=== PATIENT | male | born 1975 | race Caucasian/White ===

== ENCOUNTER 2018-08-11 00:24 | Outpatient (CLI) | payer BC, SELFPAY ==
--- NOTE | 2018-08-11 07:42 | DI.US_ITS ---
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 MASS CAUSING VARICOCELE RENAL ULTRASOUND: There are no prior comparison exams. The kidneys are normal in size and show normal parenchymal thickness and echogenicity. The right kidney measures 10.5 cm in length. The left kidney measures 11.8 cm in length. No hydronephrosis or calcifications are seen. The prevoid bladder volume measured 466 cc's. There is a 30 cc postvoid residual. No bladder mass or wall thickening is seen. Both ureteral jets were visualized. The prostate has a normal of 29 cc's. IMPRESSION: Negative renal ultrasound. SCROTAL ULTRASOUND: The testicles are normal in size and show normal blood flow and echogenicity. No masses are seen. There is no evidence of torsion. An 8 x 7 x 9 mm cyst is seen in the head of the right epididymis. A 6 mm cyst is seen in the head of the left epididymis. There are mild bilateral varicoceles, right greater than left. There is no evidence of hydrocele. IMPRESSION: Small bilateral varicoceles and small bilateral epididymal head cysts.
== END 2018-08-11 00:44 ==
PROVIDERS: PCP Nurse Practitioner Family; Visit Provider Urology
DX: N46.01 Organic azoospermia (principal); I86.1 Scrotal varices; N50.3 Cyst of epididymis
CPT/HCPCS: 76770; 76870

== ENCOUNTER 2018-10-24 16:46 | Outpatient (CLI) | payer BC, SELFPAY | END 2018-10-24 17:06 | PROVIDERS: PCP Nurse Practitioner Family; Visit Provider Urology | DX: N46.01 Organic azoospermia (principal) | CPT/HCPCS: 36415; 81403; 88230; 88262 ==

== ENCOUNTER 2018-10-30 09:10 | Emergency (ER) | payer OTHER, BC, SELFPAY ==
[2018-10-30 09:14] VITALS: BP 165/113; PULSE 88; RESP 16; TEMP 36.2; O2SAT 95
--- NOTE | 2018-10-30 09:41 | W.ED.GENAD ---
Discharge Plan Disposition Patient Disposition: HOME Condition: Stable Discharge Details Chief Complaint: Orthopedic Clinical Impression: Partial Achilles tendon tear, High blood pressure Primary Care Provider: Sally Bellamy ED Provider: Mary Akins Home Meds and New Rx's Prescriptions: No Action hydrocodone-acetaminophen [Dahlen] 5-325 mg Tablet 1 tab PO Q4H RF: 0 Discharge Instructions Instructions: Achilles Tendon Rupture (ED), Hypertension (ED) Additional Instructions: Please return immediately to the emergency department if you develop any new or worsening symptoms or if you become otherwise concerned. It is extremely important that you make an appointment to be seen as soon as possible by an orthopedic surgeon and also by your primary care doctor. Referrals: Jason Day MD [[facility] STAFF PHYSICIAN] - Sally Bellamy [Primary Care Provider] - Discharge Data Discharge Date/Time-TO BE ENTERED AT DEPARTURE: 10/30/18 11:35 Medical Decision Making Shelton Collazo is a 43 y/o man without reported history of medical problems who presented to the emergency department with sudden onset posterior heel/ankle pain that occurred while playing basketball this morning. On exam patient is well and nontoxic appearing. Tenderness and somewhat limited dorsiflexion consistent with Achilles tendon injury. Plan for x-ray for rule out avulsion fracture. X-ray negative. Concern for partial versus complete Achilles tendon rupture, suspect partial given relatively intact dorsiflexion, mild pain with walking. Plan for boot, crutches, outpatient follow-up with orthopedic surgery. Patient placed on Ortho-Est. I had a lengthy discussion with the patient regarding return to emergency department precautions, home care, and importance of outpatient follow-up with Orth O and PCP. Patient verbalized understanding of the plan and was amenable, patient was discharged with clear plan for follow-up. All questions were answered. Medical Records Medical records reviewed: Yes I reviewed the patient's medical records. Imaging Data Radiologic Study: Attestation: I personally reviewed and interpreted this imaging study as follows: Radiologist's impression: 11:06: X-ray per radiology no acute findings HPI General Mode of arrival: ambulatory. Date/Time Provider Initiated Documentation: 10/30/18 09:41. Limitations to Documentation: no limitations. Information obtained by: patient, RN notes reviewed and old records reviewed. HPI Narrative: Shelton Collazo is a 43 y/o man without reported h/o major medical problems presenting to the emergency department with ankle pain. Patient reports that he was playing basketball this morning, when he attempted a sudden acceleration to the side and had sudden sharp pain of the back of his left ankle. Patient reports it felt as if he had been kicked. Being held at night he was unable to continue playing because of pain. Patient reports no other injury. He has mild pain with walking. He was previously in his usual state of health, no recent illness. Patient reports that he has had chronic mild intermittent pain in the posterior left heel over the past 10 years, but no pain similar to what he experienced today. Related Data Home Medications Medication Instructions Recorded Confirmed hydrocodone-acetaminophen [Dahlen] 1 tab PO Q4H 11/01/18 11/01/18 Allergies Allergy/AdvReac Type Severity Reaction Status Date / Time No Known Allergies Allergy Unverified 11/01/18 09:16 General Stated Complaint: Orthopedic SEMAJ: 4 Review of Systems Review of Systems Constitutional: denies fevers Eyes: denies eye pain ENT: denies facial pain, dental pain, sore throat Cardiovascular: denies chest pain Respiratory: denies SOB, cough GI: denies abdominal pain, vomiting, diarrhea : denies flank pain MSK: denies back pain, neck pain, reports posterior left ankle pain as per HPI Skin: denies rash Neuro: denies headaches, numbness, weakness PFSH Medical History [place] teeth removed (Acute) Family History Other Cancer Social History Smoking/Tobacco Use Status: Never Alcohol Intake: current Alcohol Intake frequency: a few times a week Alcohol type: beer Substance use type: does not use Do you feel safe at home: Yes Do you feel safe in your relationship?: Yes Exam Narrative Exam Narrative: Constitutional: well and [id number], pleasant, conversing normally HENT: head atraumatic/normocephalic/normal inspection, mucous membranes moist Eyes: conjunctiva normal, sclera normal, pupils 3mm b/l Neck: no stridor, normal ROM, trachea midline Resp: normal work of breathing, LCTAB Cardio: normal rate, normal rhythm, no murmur appreciated Skin: warm, dry, normal color, no rash Neuro: alert, not altered, grossly non-focal, normal tone Ext: mild tenderness over left achilles, Pt able to dorsiflex with some limitation, negative brown test, ankle o/w nontender to palpation, no posterior calf tenderness, full range of motion knee and toes, DP pulses intact and symmetric, good cap refill Psych: normal mood, normal affect, normal behavior Course Vital Signs Temperature 36.2 C L 10/30/18 09:14 Pulse 88 10/30/18 09:14 Respiratory Rate 16 10/30/18 09:14 Blood Pressure 165/113 H 10/30/18 09:14 Pulse Oximetry 95 10/30/18 09:14 Temperature 36.2 C L 10/30/18 09:14 Pulse 88 10/30/18 09:14 Respiratory Rate 16 10/30/18 09:14 Respiratory Effort Non-Labored 10/30/18 09:17 Blood Pressure 165/113 H 10/30/18 09:14 Pulse Oximetry 95 10/30/18 09:14 Oxygen Delivery Method Room Air 10/30/18 09:14 Oxygen Flow Rate 0 10/30/18 09:14
--- NOTE | 2018-10-30 10:08 | DI.RAD_ITS ---
SYMPTOMS/DIAGNOSIS: TRAUMA, PAIN OVER ACHILLES LEFT ANKLE: Three views were obtained. The ankle mortise appears well maintained. No fracture is seen.
== END 2018-10-30 11:35 | disposition home or self-care (01) ==
PROVIDERS: Emergency Provider Student in an Organized Health Care Education/Training Program; PCP Nurse Practitioner Family
DX: S86.012A Strain of left Achilles tendon, initial encounter (principal); X50.9XXA Other and unspecified overexertion or strenuous movements or postures, initial encounter; I10 Essential (primary) hypertension; Y93.67 Activity, basketball
CPT/HCPCS: 99283; 73610; L4361

== ENCOUNTER 2018-11-01 09:03 | Day surgery (SDC) | payer OTHER, BC, SELFPAY ==
[2018-11-01] VITALS (7 sets, daily range): BP systolic 120–140; BP diastolic 49–87; PULSE 67–84; RESP 14–19; TEMP 36–37.2; O2SAT 92–95
[2018-11-01] MEDS: Lactated Ringers 1,000 ML 80 ML IV (09:39)
[2018-11-01] MEDS: Bupivacaine 0.5% Pres-Free 30 ML VIAL (11:25)
[2018-11-01] MEDS: Bupivacaine LIPOSOME/PF 133 MG/10 ML VIAL IJ (11:25)
[2018-11-01] MEDS: fentaNYL 100 MCG/2 ML VIAL IVP (12:05)
--- NOTE | 2018-11-01 12:07 | PDOC.DSDIS_ITS ---
Discharge Plan Disposition Patient Disposition: HOME Condition: Improving Discharge Details Reason For Visit: (L) ACHILLES TENDON REPAIR Attending Provider: Jonathon Lei Primary Care Provider: Sally Bellamy Home Meds and New Rx's Prescriptions: No Action No Known Home Meds RF: 0 Discharge Instructions Additional Instructions: Keep your left ankle elevated above heart level as much as possible for the next 48 hours. Gently exercise your toes as comfort allows. Your cast has been split, you may loosen the mayo bandage and spread or wedge the cast open if it feels too tight. Use an ice bag over the back of your cast in the achilles tendon region to help with pain and swelling. It may take up to 40 minutes for the cold to be conducted thru the cast padding. You may get up to eat or to go to the bathroom, but for the next 48 hours try to maximize elevation. Always use your crutches to avoid placing any weight upon your cast. However, you may gently rest your cast on the ground while standing still. For showering, cover your cast with a plastic bag and a rubber band about the knee to keep it dry. Placing a chair or stool in the shower will make the process easier. Follow-up with Dr. Lei in 2 weeks for cast change and stitch removal.Take tylenol, advil or aleve for milder pain. Tylenol may be taken at the same time as aleve, or at the same time as advil, as they are metabolized differently and are not cross toxic. Take norco (hydrocodone 5/325mg) 1-2 every 4 hours for more serious pain. [facility] [place] amount [place] that can be prescribed to 18 tablets. Equipment/Supplies: Cast Activity:: Elevate Remove Dressings/Wound Care:: Do Not Remove Shower/Bathe:: Cover Diet:: As Tolerated Discharge Orders Discharge Orders: Discharge Order (Routine); Ordered 11/01/18 Ordered By: Jonathon Lei DS: Diagnosis Discharge Diagnosis (1) Achilles tendon rupture: Status: Acute
[2018-11-01] MEDS: HYDROcodone 5/Acetaminophen 325 TAB PO (12:44)
--- NOTE | 2018-11-01 17:14 | ROE_ITS ---
DATE OF PROCEDURE: November 01, 2018 PREOPERATIVE DIAGNOSIS: Complete rupture of left Achilles tendon. POSTOPERATIVE DIAGNOSIS: Complete rupture of left Achilles tendon. PROCEDURE: #1. Repair of left Achilles tendon. #2. Application of short leg gravity equinus cast univalve. SURGEON: Jonathon Lei M.D. SUPERVISOR OF OPERATIONS: Marry De Los Santos PA-C ANESTHESIA: General via LMA by Chriss Edmonds CRNA PREP: ChloraPrep. INDICATIONS: This patient sustained an injury to his left Achilles tendon two days ago while playing in the student/teacher basketball game at [employer]. He was running down the court, lisa ntar flexed on his left foot, and felt a pop and immediate pain and numbness. Subsequent steps showe d that he was very weak. He came to the Emergency Room where x-rays were obtained. He was told he h ad a partial Achilles tendon rupture. He was referred to me. I reviewed the patient's history and I felt that I have yet to see a partial Achilles tendon rupture and I recommended the patient come in this morning for evaluation. He had been given a fracture walking brace which he declined to use onc e he got home because he felt it was of no help. Clinical exam showed ecchymosis in the arch of the foot and an obvious palpable defect over his Achilles tendon. This was approximately 4 cm proximal t o its insertion. The patient's past history is otherwise unremarkable. He is an avid weightlifter. He had some dental work done recently and has been on amoxicillin and another unknown antibiotic. Deven fisher does not think it was Cipro but he is uncertain. I recommended that he undergo Achilles tendon rep air and I explained the rationale for this, with a lesser re-rupture rate and higher calf strength. Nonoperative treatment was also discussed as well as a second opinion if he so desired. He understoo d and wished to proceed. The patient was taken from the office to the Day Surgery holding site. I m arked his left leg. He was seen by Anesthesia and we elected to proceed with surgery. Because he allred s two brothers who have had an allergy to Keflex, I was somewhat concerned about a potential allergy, but the patient's not responding to amoxicillin made me feel that he probably did not have any true allergy to this antibiotic. Nonetheless, we gave a test dose of Ancef, which the patient showed no r eaction to, and then 2 grams were given. OPERATIVE PROCEDURE: A time-out was instituted after the left lower extremity was prepped with Chlor aPrep and sterile drapes were applied. A medial approach to the Achilles tendon was performed with a bump being placed under his right iliac crest to externally rotate his left leg. This avoided an in cision directly over the subcutaneous border of the Achilles tendon. Using loupe magnification, a 7- cm incision was made over the Achilles tendon. It was completely disrupted. The tendon sheath was c arefully opened and I noted that the plantaris tendon had been completely ruptured off its proximal o rigin above the leg. It was still attached distally. I subsequently used a portion of this to augme nt the repair. After removing the hematoma, I then used sutures of #2 Ethibond in a Krackow techniqu e to repair the core of the Achilles tendon. I then supplemented this with sutures of #2-0 Vicryl an d #2 Ethibond in a horizontal mattress fashion to tidy up the repair. Finally, I used the plantaris tendon which was left attached distally and wove it in through the repair to help provide for strengt h. The tourniquet was then deflated. Hemostasis was under control. The tendon sheath was approxima mary ellen but could not be completely closed fully, but provided good interface between the repair and the posterior skin of the Achilles. Subcutaneous tissues were closed with #2-0 Vicryl. The skin was asif sed with sutures of #3-0 Ethilon in a near-far far-near retention technique. The sutures were placed approximately three-quarters of an inch apart to allow for any potential drainage and to prevent any strangulation. The patient had excellent return of capillary refill and no evidence of any areas of dysvascularity. The wound was dressed with Xeroform gauze, 4x4s and a 3-inch conforming gauze flood ge, followed by a short leg cast in gravity equinus position which was univalved. He was taken to the Recovery Room in satisfactory condition, tolerating the procedure well. There wa s no appreciable blood loss.
== END 2018-11-01 14:10 | disposition home or self-care (01) ==
PROVIDERS: PCP Nurse Practitioner Family; Visit Provider Orthopaedic Surgery
PROC: (CPT 27650; principal; 2018-11-01 09:30)
DX: S86.012A Strain of left Achilles tendon, initial encounter (principal); X50.0XXA Overexertion from strenuous movement or load, initial encounter; Y93.67 Activity, basketball; Y92.213 High school as the place of occurrence of the external cause
CPT/HCPCS: 27652; C1713; E0114; J0690; J1100; J1885; J2250; J2405; J3010

== ENCOUNTER 2019-03-30 19:54 | Outpatient (REF) | payer BC, SELFPAY ==
[2019-03-30 19:41] LABS: Anion Gap 13.1 mmol/L (3-11); BUN 13 mg/dL (7-18); CO2 25.9 mmol/L (21.0-32.0); CREATININE 1.35 mg/dL (0.70-1.30); Calcium 8.9 mg/dL (8.5-10.1); Calculated LDL 78 mg/dL; Chloride 107 mmol/L (98-107); Cholesterol 209 mg/dL (50-200); Estimated GFR 57.96 (mL/min/1.73m2); Glucose 94 mg/dL (70-100); HDL Cholesterol 102 mg/dL (40-60); Potassium 4.3 mmol/L (3.5-5.1); Sodium 146 mmol/L (136-145); Triglyceride 147 mg/dL (30-150)
== END 2019-03-30 20:14 ==
LOC: NCHCN 19:54
PROVIDERS: PCP Nurse Practitioner Family; Visit Provider Nurse Practitioner Family
DX: Z00.00 Encounter for general adult medical examination without abnormal findings (principal); Z80.0 Family history of malignant neoplasm of digestive organs; Z71.89 Other specified counseling
CPT/HCPCS: 80048; 80061

== ENCOUNTER 2019-04-18 06:14 | Day surgery (SDC) | payer BC, SELFPAY ==
[2019-04-18 06:21] VITALS: BP 127/86; PULSE 67; RESP 16; TEMP 36.6; O2SAT 95
--- NOTE | 2019-04-18 08:06 | W.PM.DSUDISC ---
Discharge Plan Disposition Patient Disposition: HOME Condition: Good Discharge Details Reason For Visit: Colonoscopy Attending Provider: Ebony Navarro Primary Care Provider: Denita Jha Home Meds and New Rx's Prescriptions: Discontinued polyethylene glycol 3350 17 gram/dose powder 238 g PO ONCE Qty: 238 RF: 0 bisacodyl [Dulcolax (bisacodyl)] 5 mg tablet,delayed release (DR/EC) 5 mg PO ONCE Qty: 4 RF: 0 Discharge Instructions Additional Instructions: Findings: Mild diverticulosis was found. Make sure to take in 30 grams of fiber daily Follow up: Plan for a colonoscopy in 5 years due to family history Please call if you develop: fevers >101.5 Nausea or Vomiting Abdominal pain that is not transient DAY SURGERY UNIT POST COLONOSCOPY INSTRUCTIONS 1. Because there will be medication in your system for the next 24 hours, you may feel a little sleepy. Your coordination will be affected. Therefore: a. Do not drive or operate dangerous equipment for 24 hours. b. Do not drink alcohol beverages for 24 hours (not even beer). c. Plan to go home and rest for the day. 2. Generally there are no restrictions on your activity after a day or so has gone by, but you may feel a bit fatigued for a few days. 3 After you arrive home you may have a light meal and return to a normal diet as you can tolerate it without feeling sick to your stomach. 4. After surgery, you may feel pain or discomfort. This should be only transient, but if it persists please contact your doctor. 5. If there are any questions regarding the findings of your procedure, please feel free to contact your doctor. 6. If you are unable to contact your doctor with a problem, contact the hospital at [phone]. 7. Continue all your regular medications unless directed otherwise. I understand the above instructions and have no questions. Signature of Patient or Responsible Adult Escort Date/Time Name of Responsible Adult Escort Signature of Nurse Date/Time Activity:: Activity as Tolerated Diet:: High fiber Discharge Orders Discharge Orders: Discharge Order (Routine); Ordered 04/18/19 Ordered By: Ebony Navarro DS: Diagnosis Discharge Diagnosis (1) Diverticulosis: Status: Acute
[2019-04-18 08:30] VITALS: BP 122/81; PULSE 54; RESP 16; TEMP 36.5; O2SAT 96
--- NOTE | 2019-04-18 10:47 | COLE_ITS ---
REPORT OF OPERATIVE PROCEDURE DATE OF PROCEDURE April 18, 2019 PREOPERATIVE DIAGNOSIS Family history of colon cancer. POSTOPERATIVE DIAGNOSIS Mild diverticulosis. PROCEDURE Colonoscopy. SURGEON Ebony Navarro M.D. ANESTHESIA General. INDICATIONS This is a 44-year-old man whose brother had colon cancer at age 48. He presents for his first screeni ng colonoscopy. He is asymptomatic. PROCEDURE DESCRIPTION He was placed in the left Ramires position. Propofol was titrated to sedation. Digital rectal examinatio n revealed no abnormities. The scope was advanced to the cecum without difficulty. His prep was exce llent. The ileocecal valve and the appendiceal orifice were clearly identified. The scope with slowly withdrawn with no abnormalities seen within the ascending, transverse or descending colon. He had sc attered diverticulosis change in the sigmoid colon. The rectum was normal including on retroflexed vi ew. He tolerated the procedure well and was stable to Recovery. He will need a followup screening again in 5 years due to his family history. CC: Sally Bellamy N.P.
== END 2019-04-18 08:45 | disposition home or self-care (01) ==
PROVIDERS: PCP Nurse Practitioner Family; Visit Provider Surgery
PROC: 0DJD8ZZ Inspection of Lower Intestinal Tract, Via Natural or Artificial Opening Endoscopic (ICD-10-PCS; CPT 45378; principal; 2019-04-18 07:30)
DX: Z12.11 Encounter for screening for malignant neoplasm of colon (principal); Z80.0 Family history of malignant neoplasm of digestive organs; K57.30 Diverticulosis of large intestine without perforation or abscess without bleeding
CPT/HCPCS: 45378

== ENCOUNTER 2021-10-21 11:52 | Emergency (ER) | payer BC, SELFPAY ==
--- NOTE | 2021-10-21 11:45 | RT.EKG_ITS ---
APPROVED REPORT Exam: Resting ECG Reason for Exam: chest pain Patient Location: E HR:69 bpm ECG Measurements Heart Rate 69 AXIS PA 203 P 42 QRSd 109 QRS 43 QT 421 T 29 QTc 453 Conclusion Sinus rhythm...normal P axis, V-rate 60- 99 Borderline prolonged PA interval...PA >202, V-rate 50- 90
[2021-10-21 11:59] VITALS: BP 156/95; PULSE 67; RESP 16; TEMP 36.4; O2SAT 100
--- NOTE | 2021-10-21 12:30 | DI.RAD_ITS ---
Exam(s) XR CHEST 2V PA LATERAL EXAM: XR CHEST 2V PA LATERAL CLINICAL HISTORY: pain left ant lateral chest wall. TECHNIQUE: 2D digital imaging was performed. COMPARISON: No exams were available for comparison FINDINGS: 2 views: Heart size is normal. The mediastinum is not widened. Right lung is clear. There is mild increased density in the left infrahilar region. Measures 1.8 by 1.7 cm. Possibly prominent lower lobe vessel but cannot exclude infiltrate or mass. Recommend foll ow-up contrast infused CT scan. IMPRESSION: Left infrahilar findingas described above. Recommend contrast infused CT scan. DATA REPOSITORY: RADIATION DOSE DELIVERED:
[2021-10-21 12:44] LABS: Absolute Basophil Count 0.01 10^3/uL (0.0-0.2); Absolute Eosinophil Count 0.08 10^3/uL (0.0-0.7); Absolute Lymphocyte Count 1.24 10^3/uL (1.2-3.4); Absolute Monocyte Count 0.54 10^3/uL (0.1-0.8); Absolute Neutrophil Count 2.19 10^3/uL (1.2-6.7); Basophils % 0.2; HCT 44.9 % (40.0-50.0); HGB 15.6 g/dL (13.5-17.5); Lymphocytes % 30.5; MCH 32.3 pg (27.0-33.0); MCHC 34.7 % (32.0-36.0); MPV 10.2 fL (8.0-11.0); Monocytes % 13.3; Nucleated RBC 0 %; Platelet Count 240 10^3/uL (130-400); RBC 4.83 10^6/uL (4.36-5.78); RDW-SD 41.6 fL; WBC 4.06 10^3/uL (4.4-10.8)
--- NOTE | 2021-10-21 12:58 | ED.GENADUL_ITS ---
Discharge Plan Disposition Patient Disposition: HOME Condition: Stable Discharge Details Clinical Impression: Chest discomfort Primary Care Provider: Denita Jha ED Provider: Aj Akins Home Meds and New Rx's Prescriptions: No Action No Known Home Meds 0RF Discharge Instructions Instructions: Chest Pain (ED), Hiatal Hernia (ED), Vertebral Compression Fracture (ED) Additional Instructions: Please take aspirin 81 mg daily Please contact your primary care physician to arrange follow-up and outpatient diagnostic testing including cardiac stress testing to be performed as soon as possible. Return to the ER immediately for any worsening or new concerning symptoms. Referrals: Denita Jha [Primary Care Provider] - Discharge Data Discharge Date/Time-TO BE ENTERED AT DEPARTURE: 10/21/21 17:57 Medical Decision Making 46-year-old male here with left anterior mild chest crampy discomfort that I going on for a few weeks as well as intermittent anxious feeling with possible palpitations. Symptoms do not seem to worse with high intensity exertional exercise. Patient has had significant life stressors recently. Consider ACS. EKG was reviewed interpreted by me: Please see report, no STEMI, sinus rhythm, borderline prolonged AR at 202, nondiagnostic. Plan to check troponin. Pain is pleuritic in nature, he has no tachycardia, no calf tenderness or swelling. PERC applies. Consider pneumothorax. Plan obtain chest x-ray. Consider anxiety and musculoskeletal etiology. 1340 --chest x-ray was reviewed and interpreted by radiology: IMPRESSION: No acute pulmonary findings.Prominent retrocardiac hiatal hernia again noted. Nonacute T12 compression fracture Results were discussed with patient. -- Deltra trop negative. Patient reassessed and stable. Plan discharge and for close outpatient followup. Usual and customary discharge instructions were reviewed with the patient. HPI General Mode of arrival: ambulatory . Date/Time Provider Initiated Documentation: 10/21/21 12:09 . Limitations to Documentation: no limitations . Information obtained by: patient . HPI Narrative: 46yo m here with chief complaint of chest discomfort. Patient notes discomfort in his left anterior lateral chest. Patient notes discomfort started 2 to 3 wee ks ago and has been intermittent. Discomfort persisted today for hours. Discomfort is described as a cramp. Mild in intensity. Patient notes he feels like he needs to stretch. Discomfort is worse in certain positions including seated and slouched over. Patient also notes sensation of anxiety intermittent over the past 6 weeks. He notes he has had significant life stressors including having his ill father living with him just before he a few months ago. Patient called his primary care physician office today to request appointment and they advised to come here to the emergency department. Patient does note that he works out regularly with high intensity workouts. He did have a workout this morning. Discomfort does not worsen with exertion. Related Data Home Medications Medication Instructions Recorded Confirmed Unknown [No Known Home Meds] 10/21/21 10/21/21 Allergies Allergy/AdvReac Type Severity Reaction Status Date / Time No Known Allergies Allergy Verified 10/21/21 12:03 General Stated Complaint: Chest Pain SEMAJ: 2 Review of Systems All systems reviewed & are unremarkable except as noted in HPI and below Constitutional Constitutional: Denies fever(s) Cardiovascular Cardiovascular: Reports as per HPI Psychiatric Psychiatric: Reports as per HPI PFSH All Active Problems Chest discomfort (Acute) Diverticulosis (Acute) [place] teeth removed (Acute) Medical History Achilles tendon rupture (10/30/18) Family history of colon cancer early onset age < 60 in first degree relative Surgical History H/O Achilles tendon repair History of colonoscopy 04/18/19 Dr Ebony Navarro, [facility], Diverticulitis, repeat five years due to family history colon cancer. Family History Other Cancer Social History Smoking/Tobacco Use Status: Never Smoking risk assessment performed?: Yes Alcohol Intake: current Alcohol Intake frequency: a few times a week Alcohol type: beer Drug use: Never Substance use type: does not use Do you feel safe at home: Yes Do you feel safe in your relationship?: Yes Exam Const General: cooperative and no acute distress HENMT Mouth: moist mucous membranes Eyes Conjunctivae: normal conjunctivae Sclera: normal sclerae Neck Neck: trachea midline Resp Auscultation: clear to auscultation bilaterally, no rales, no rhonchi and no wheezes Cardio Rate: regular rate and not tachycardic Rhythm: regular rhythm Heart Sounds: no gallops, no murmurs and no rubs GI Palpation: soft, not firm, no guarding, no masses, not rigid and nontender Skin General skin exam: no rashes or lesions noted Neuro General: patient alert, patient awake, patient oriented x3 and tone normal Extrem General: no calf tenderness and no edema Psych Appearance: grossly normal Mental Status: mental status grossly normal Speech and Movement: speech and movement normal Course Vital Signs Vital signs: Vital Signs Temperature 36.4 C L 10/21/21 11:59 Pulse 67 10/21/21 11:59 Respiratory Rate 16 10/21/21 11:59 Blood Pressure 156/95 H 10/21/21 11:59 Pulse Oximetry 100 10/21/21 11:59 Temperature 36.4 C L 10/21/21 11:59 Temperature Source Skin 10/21/21 11:59 Pulse 67 10/21/21 11:59 Respiratory Rate 16 10/21/21 11:59 Respiratory Effort 10/21/21 12:45 Respiratory Depth Normal 10/21/21 12:45 Respiratory Pattern Normal 10/21/21 12:45 Blood Pressure 156/95 H 10/21/21 11:59 Blood Pressure Position Supine 10/21/21 11:59 Pulse Oximetry 100 10/21/21 11:59 Oxygen Delivery Method Room Air 10/21/21 11:59 Oxygen Flow Rate 0 10/21/21 11:59 Pain Level 3 10/21/21 11:59 Lab/Test Results Lab/Test Results: Laboratory Tests Range/Units 10/21/21 12:40 WBC (4.4-10.8) 10^3/uL 4.06 L RBC (4.36-5.78) 10^6/uL 4.83 Hgb (13.5-17.5) g/dL 15.6 Hct (40.0-50.0) % 44.9 MCV (80-95) fL 93.0 MCH (27.0-33.0) pg 32.3 MCHC (32.0-36.0) % 34.7 RDW (11.8-14.1) % 12.0 Plt Count (130-400) 10^3/uL 240 MPV (8.0-11.0) fL 10.2 Immature Gran % 0.0 Neutrophils % 54.0 Lymphocytes % 30.5 Monocytes % 13.3 Eosinophils % 2.0 Basophils % 0.2 Nucleated RBC % % 0 Absolute Neutrophils (1.2-6.7) 10^3/uL 2.19 Absolute Lymphocytes (1.2-3.4) 10^3/uL 1.24 Absolute Monocytes (0.1-0.8) 10^3/uL 0.54 Absolute Eosinophils (0.0-0.7) 10^3/uL 0.08 Absolute Basophils (0.0-0.2) 10^3/uL 0.01 PAWSS Have you Been Recently Intoxicated or Drunk Within the Last 30 days?: Yes Have you Ever Experienced Previous Episodes of Alcohol Withdrawal?: No Have you ever Experienced Withdrawal Seizures?: No Have you ever Experienced Delirium Tremens(DT)s?: No Have you ever undergone Alcohol Rehabilitation Treatment (i.e, inpt ot outpatient treatment programs)?: No Have you ever Experienced Blackouts?: No Have you ever Combined Alcohol with other Downers within the last 90 days?: No Have you ever Combined Alcohol with any other Substance of Abuse during the last 90 days?: No Positive Blood Alcohol level on Presentation? [PCS.BAL]: No Evidence of Increased Autonomic Activity (i.e. HR>120, tremor, sweating, agitation, nausea)?: No Result: 1
[2021-10-21 13:32] LABS: ALT 32 U/L (16-63); AST 26 U/L (15-37); Alkaline Phosphatase 54 U/L (46-116); Anion Gap 7.7 mmol/L (3-11); BUN 20 mg/dL (7-18); CO2 27.3 mmol/L (21.0-32.0); CREATININE 1.1 mg/dL (0.70-1.30); Calcium 8.7 mg/dL (8.5-10.1); Chloride 104 mmol/L (98-107); Glucose 96 mg/dL (74-106); Potassium 3.7 mmol/L (3.5-5.1); Sodium 139 mmol/L (136-145); TSH (W/Ref FT4) 2.06 uIU/mL (0.36-3.74); Total Protein 6.7 g/dL (6.4-8.2); Troponin I < 50 ng/L (<or=60)
[2021-10-21 16:08] LABS: Troponin I < 50 ng/L (<or=60)
== END 2021-10-21 17:57 | disposition home or self-care (01) ==
PROVIDERS: Emergency Provider Student in an Organized Health Care Education/Training Program; PCP Nurse Practitioner Family
DX: R07.9 Chest pain, unspecified (principal)
CPT/HCPCS: 36415; 80053; 93005; 99284; 71046; 84443; 84484; 85025; 93010; 99283